=== PATIENT | female | born 1940 | race Caucasian/White ===

== ENCOUNTER 2018-03-10 16:55 | Inpatient (IN) | payer OTHER ==
[~2018-03-10] VITALS: Ht 165.1 cm; Wt 61.2 kg
--- NOTE | 2018-03-10 16:58 | NUR ---
Patient to ER bed 07 to gown for evaluation. Side rails up.
[2018-03-10 17:05] VITALS: BP_SYST 153
--- NOTE | 2018-03-10 17:08 | NUR ---
Kiley gray in EDM - 03/10/18 at 1722 by [email or web address] Pt brought by self,A&Ox4, pt presents to ER with sore throat , body aches and cough, afebrile, pt denies chest pain, respirations even and unlabored.
--- NOTE | 2018-03-10 17:10 | NUR ---
Dr Quiroz at bedside examining patient
[2018-03-10] MEDS ORDERED: NACL 0.9% 1,000 ML IV ONE (17:13)
[2018-03-10] MEDS ORDERED: ALBUTEROL SULFATE 0.083% 2.5 MG/3 ML VIAL.NEB IH ONE (17:15)
[2018-03-10] MEDS ORDERED: IPRATROPIUM BROM 0.5 MG/2.5 ML VIAL.NEB (ATROVENT) IH ONE (17:15)
[2018-03-10] MEDS ORDERED: ALBUTEROL SULFATE 0.083% 2.5 MG/3 ML VIAL.NEB INH ONE (17:26)
[2018-03-10] MEDS ORDERED: IPRATROPIUM BROM 0.5 MG/2.5 ML VIAL.NEB (ATROVENT) INH ONE (17:26)
[2018-03-10 17:50] LABS: BASOPHILS # (AUTO) 0.1 K/uL (0.0-0.2); BASOPHILS % (AUTO) 1.1 % (0.0-2.0); EOSINOPHILS # (AUTO) 0.4 K/uL (0.0-0.4); EOSINOPHILS % (AUTO) 4.8 % (0.0-4.0); HEMATOCRIT 45.5 % (36-48); HEMOGLOBIN 15.1 g/dL (12.0-16.0); LYMPHOCYTES # (AUTO) 0.9 K/uL (1.0-5.5); LYMPHOCYTES % (AUTO) 11.7 % (20.5-51.5); MEAN CORPUSCULAR HEMOGLOBIN 30 pg (27-31); MEAN CORPUSCULAR HGB CONC 33 % (32-36); MEAN CORPUSCULAR VOLUME 91 fL (79.0-98.0); MONOCYTES # (AUTO) 0.6 K/uL (0.0-1.0); MONOCYTES % (AUTO) 7.3 % (1.7-9.3); NEUTROPHILS # (AUTO) 5.8 K/uL (1.8-7.7); NEUTROPHILS % (AUTO) 75.1 % (40.0-70.0); PLATELET COUNT (AUTO) 261 K/uL (130-430); RED CELL DISTRIBUTION WIDTH 13.4 % (9.0-15.0); WHITE BLOOD COUNT (AUTO) 7.8 K/uL (4.8-10.8)
--- NOTE | 2018-03-10 18:00 | NUR ---
IV Fluids were administered, pt tolerated well. No adverse reaction, will continue to monitor.
[2018-03-10 18:06] LABS: PROTHROMBIN TIME 9.8 SECS (9.5-12.5)
[2018-03-10] MEDS ORDERED: AFAT40TA PO (18:12)
[2018-03-10] MEDS ORDERED: VERA180C8 PO (18:12)
[2018-03-10] MEDS ORDERED: ALBUTEROL SULFATE 0.083% 2.5 MG/3 ML VIAL.NEB INH SCH (18:15)
--- NOTE | 2018-03-10 18:36 | NUR ---
Patient will be admitted to care of Dr. Conde. Admitted to Med Surg unit. Will go to room 102 A. Belongings list completed. Summary report printed. Report will be given at bedside.
--- NOTE | 2018-03-10 18:40 | NUR ---
Admission Note Received patient from ER with diagnosis of lung cancer shortness of breath. Initial Plan of Care discussed-patient verbalized understanding. Family at bedside. Oriented to room, call light, pain management and safety.
[2018-03-10 18:51] VITALS: BP_SYST 158
[2018-03-10 18:54] LABS: ANION GAP 9 (5-15); CALCIUM 8.3 mg/dL (8.4-11.0); CHLORIDE 102 mmol/L (98-107); CREATININE 0.89 mg/dL (0.55-1.30); GLUCOSE 98 mg/dL (70-99); POTASSIUM 3.6 mmol/L (3.5-5.1); SODIUM SERUM 136 mmol/L (136-145); UREA NITROGEN, BLOOD 20 mg/dL (8-21)
[2018-03-10 18:58] LABS: ALANINE AMINOTRANSFERASE 11 U/L (12-78); ALBUMIN 2.6 g/dL (3.4-4.8); ASPARTATE AMINOTRANSFERASE 18 U/L (10-37); LIPASE 694 U/L (73-393); TOTAL BILIRUBIN 0.4 mg/dL (0.0-1.0)
--- NOTE | 2018-03-10 19:05 | NUR ---
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
--- NOTE | 2018-03-10 19:30 | NUR ---
INITIAL NOTES RECEIVED HANDOFF REPORT FROM OFFGOING NURSE AT THE BEDSIDE. PATIENT IS AWAKE AND ALERT, RESTING COMFORTABLY IN BED. NO SOB, NO ACUTE DISTRESS, NO COMPLAINTS OF PAIN. IV SITE INTACT, DRESSING CLEAN AND DRY, SALINE LOCKED. BED IS LOCKED, IN THE LOWEST POSITION, 2X SIDE RAILS UP, BED ALARM ON. CALL LIGHT WITHIN REACH. ENCOURAGED PATIENT TO CALL FOR ASSISTANCE. WILL CONTINUE WITH PLAN OF CARE.
--- NOTE | 2018-03-10 20:01 | NUR ---
DR WHITMAN CALLED. INFORMED DR WHITMAN THAT THE PATIENT IS HUNGRY, BUT DOES NOT YET HAVE A DIET ORDER. DR GIFFORD ORDERED FOR A REGULAR DIET. ORDERS NOTED AND CARRIED OUT. PROVIDED PATIENT WITH A WHEAT TURKEY SANDWICH. PATIENT ALSO AMBULATED TO RESTROOM AND BACK WITH ASSISTANCE FROM THE PATIENT'S DAUGHTER DAVID.
[2018-03-10 20:08] VITALS: BP_SYST 145
--- NOTE | 2018-03-10 21:38 | NUR ---
PATIENT IS SLEEPING, RESTING COMFORTABLY IN BED. NO SOB, NO ACUTE DISTRESS, NO SIGNS OF PAIN OR FACIAL GRIMACING. BREATHING EVEN AND UNLABORED WITH VISIBLE CHEST RISE AND FALL NOTED. CALL LIGHT WITHIN REACH.
--- NOTE | 2018-03-10 22:36 | NUR ---
PATIENT IS SLEEPING, RESTING IN BED. NO SOB, NO ACUTE DISTRESS, NO SIGNS OF PAIN OR FACIAL GRIMACING. BREATHING EVEN AND UNLABORED WITH VISIBLE CHEST RISE AND FALL NOTED. BED IS LOCKED, IN THE LOWEST POSITION, 2X SIDE RAILS UP, BED ALARM ON. CALL LIGHT WITHIN REACH.
[2018-03-10] MEDS ORDERED: ACETAMINOPHEN 325 MG TABLET PO PRN (23:45)
[2018-03-10] MEDS ORDERED: ALBUTEROL SULFATE 0.083% 2.5 MG/3 ML VIAL.NEB INH PRN (23:45)
[2018-03-10] MEDS ORDERED: D5/0.45 NS 1,000 ML IV SCH (23:48)
[2018-03-11] VITALS (7 sets, daily range): BP systolic 136–169
--- NOTE | 2018-03-11 00:53 | NUR ---
PATIENT ABLE TO AMBULATE SELF INDEPENDENTLY TO THE RESTROOM AND BACK TO BED WHILE PULLING THE IV POLE ALONGSIDE HER. GAIT IS STEADY. PATIENT IS NOW BACK TO BED, RESTING COMFORTABLY IN BED. NO SOB, NO ACUTE DISTRESS, NO COMPLAINTS OF PAIN. BED IS LOCKED, IN THE LOWEST POSITION, 2X SIDE RAILS UP, BED ALARM ON. CALL LIGHT WITHIN REACH. ENCOURAGED PATIENT TO CALL FOR ASSISTANCE.
--- NOTE | 2018-03-11 02:17 | NUR ---
PATIENT IS ASLEEP, RESTING COMFORTABLY IN BED. VISIBLE CHEST RISE AND FALL SEEN. NO SOB, NO ACUTE DISTRESS, NO SIGNS OF PAIN. CALL LIGHT WITHIN REACH.
--- NOTE | 2018-03-11 03:55 | NUR ---
PATIENT IS SLEEPING COMFORTABLY IN BED. NO SOB WITH VISIBLE CHEST RISE AND FALL NOTED. , NO ACUTE DISTRESS, NO SIGNS OF ACUTE PAIN OR FACIAL GRIMACING. Addendum: 03/11/18 at 0356 by Radha Garcia RN CONTINUATION OF NOTES IV SITE INTACT, DRESSING CLEAN AND DRY, CURRENTLY INFUSING IV FLUIDS AT THE ORDERED RATE, SEE EMAR FOR DETAILS. BED IS LOCKED, IN THE LOWEST POSITION, 2X SIDE RAILS UP, BED ALARM ON. CALL LIGHT IS WITHIN REACH.
--- NOTE | 2018-03-11 05:52 | NUR ---
PATIENT IS REQUESTING FOR DIAPERS FOR INCONTINENCE. INFORMED THE PATIENT THAT THIS IS A DIAPER-FREE FACILITY, AND EXPLAINED THE RISK FACTORS OF USING A DIAPER. ALSO PROVIDED INCONTINENCE BRIEF FOR THE PATIENT TO USE. PATIENT IS UPSET, STATED "HOW DO THEY EXPECT A LITTLE OLD LADY TO NOT HAVE DIAPERS DURING INCONTINENCE?" AND THAT SHE WILL ASK HER DAUGHTER TO BRING HER SOME DIAPERS.
[2018-03-11] MEDS: PANTOPRAZOLE SODIUM 40 MG TAB PO SCH (06:06)
--- NOTE | 2018-03-11 07:13 | NUR ---
Opening Note Patient resting in bed, awake and alert, head of bed elevated, breathing unlabored on 2.5L nasal cannula, no complaints of pain at this time, educated patient on use of call light for assistance, verbalized understanding, call light and bedside table within reach, will be back to check on patient
--- NOTE | 2018-03-11 07:26 | NUR ---
CLOSING NOTES ENDORSEMENT OF CARE GIVEN TO YAMIL AT THE BEDSIDE. PATIENT IS AWAKE AND ALERT, RESTING COMFORTABLY IN BED. FALL AND SAFETY PRECAUTIONS MAINTAINED. ALL NEEDS HAVE BEEN MET DURING THIS SHIFT. Addendum: 03/11/18 at 0730 by Radha Garcia RN CONTINUATION OF NOTES PERSONAL BELONGINGS LIST HAS BEEN VERIFIED WITH THE PATIENT, AND SIGNED BY THE PATIENT.
--- NOTE | 2018-03-11 07:48 | NUR ---
Diaper Education educated patient about no diaper policy and the potential for skin breakdown, verbalized understanding, stated that she will ask family to bring some
--- NOTE | 2018-03-11 07:52 | NUR ---
CONSULTATION PAGED REASON FOR CONSULTATION:SHORTENSS OF BREATH WAS CONSULT CALLED?Y PERSON WHO WAS NOTIFIED:[facility] CONSULTING PHYSICIAN:BRITT ALEJANDRO REPORTS ANALYST SPECIALTY:PULMONARY REPORTS ANALYST PHONE NUMBER:[phone] ORDERING PHYSICIAN:FEDE SANFORD
--- NOTE | 2018-03-11 09:50 | NUR ---
Spoke with Dr. Malagon informed him about patient's leg cramping on legs, orders for [place], informed patient and family that order was placed, verbalized understanding, will be back to check on patient
[2018-03-11] MEDS ORDERED: HYDROcodone/ACETAMIN 5-325 MG TAB (NORCO/ VICODIN) PO PRN (10:00)
--- NOTE | 2018-03-11 10:04 | NUR ---
Dr. Patterson rounds at this time, will follow up with MD orders
--- NOTE | 2018-03-11 10:45 | NUR ---
No Complaints of Pain at this time, patient educated about Bedrock and PRN status of medication, verbalized understanding, stated her pain subsided, family at bedside, no other needs at this time, breathing unlabored on 2.5 L nasal cannula, safety precautions remain in place, bedside table and call light within reach, will continue to monitor
--- NOTE | 2018-03-11 10:48 | NUR ---
Clarification of order Spoke to Dr. Malagon regarding palliative care ordered he said to disregard the order, instead hospice evaluation.
--- NOTE | 2018-03-11 11:07 | NUR ---
Patient had O2 of 87% on Room Air placed nasal cannula on patient, went back up to 93% on 2.5L, will continue to monitor
--- NOTE | 2018-03-11 13:32 | NUR ---
Patient Ambulates to Restroom steady gait, family at bedside, no complaints of pain at this time, educated patient and family on use of call light for assistance, verbalized understanding, call light and bedside table within reach, will continue to monitor
--- NOTE | 2018-03-11 15:15 | NUR ---
Patient Resting in Bed eyes closed, breathing unlabored on nasal cannula, she is positioned to her side, no signs of distress, symmetrical chest expansion, IV site saline locked, no other needs at this time, safety precautions remain in place, bed in lowest position with 2 side rails up, bedside table and call light within reach, will continue to monitor
--- NOTE | 2018-03-11 17:50 | NUR ---
Patient Requesting Sleeping Aid family at bedside, she has no complaints of pain, breathing unlabored, symmetrical chest expansion, informed patient will call
--- NOTE | 2018-03-11 18:34 | NUR ---
elvira Malagon for orders spoke with Rudy Dialed [phone]. [facility] [employer].
--- NOTE | 2018-03-11 18:40 | NUR ---
Spoke with Dr. Malagon about patient request for sleeping aid, ordered ambien, asked about hospice eval, informed him that order was placed but they have not seen patient yet
--- NOTE | 2018-03-11 18:50 | NUR ---
Closing Note Patient resting in bed, awake and alert, head of bed elevated, no complaints of pain, IV site saline locked, informed patient that received MD orders for PRN sleep aid, family at bedside, no other needs at this time, safety precautions remain in place, bed in lowest position with 2 side rails up, bedside table and call light within reach, will endorse to casino shift manager nurse
[2018-03-11] MEDS ORDERED: ZOLPIDEM TARTRATE 5 MG TABLET PO PRN (19:00)
--- NOTE | 2018-03-11 19:30 | NUR ---
INITIAL NOTES RECEIVED HANDOFF REPORT FROM OFFGOING NURSE AT THE BEDSIDE. FAMILY IS AT THE BEDSIDE. NO SOB, NO ACUTE DISTRESS, NO SIGNS OF PAIN OR FACIAL GRIMACING. IV SITE INTACT, DRESSING CLEAN AND DRY, SALINE LOCKED. BED IS LOCKED, IN THE LOWEST POSITION, 2X SIDE RAILS UP. PATIENT REFUSES BED ALARM AT THIS TIME. CALL LIGHT PLACED WITHIN REACH. ENCOURAGED PATIENT TO CALL FOR ASSISTANCE IF NEEDED. ALSO EXPLAINED PLAN OF CARE TO THE PATIENT. WILL CONTINUE WITH PLAN OF CARE. Addendum: 03/11/18 at 1959 by Radha Garcia RN CONTINUATION OF NOTES. PATIENT IS ALSO ON 3L NC.
--- NOTE | 2018-03-11 20:48 | NUR ---
PATIENT REQUESTING FOR SLEEPING MEDICATION. PROVIDED SOLO RAJANN PER MD ORDER, SEE EMAR FOR DETAILS. PATIENT ALSO HAD QUESTIONS REGARDING MORNING MEDICATION PROTONIX. PROVIDED EDUCATION REGARDING THIS MEDICATION, PATIENT VERBALIZED UNDERSTANDING.
--- NOTE | 2018-03-11 22:32 | NUR ---
PATIENT IS CURRENTLY SLEEPING, RESTING COMFORTABLY IN BED LYING ON HER RIGHT SIDE. NO SOB, NO ACUTE DISTRESS, NO SIGNS OF PAIN OR FACIAL GRIMACING. BREATHING IS EVEN AND UNLABORED WITH VISIBLE CHEST RISE AND FALL SEEN. BED IS LOCKED, IN THE LOWEST POSITION, 2X SIDE RAILS UP, BED ALARM ON. CALL LIGHT WITHIN REACH.
--- NOTE | 2018-03-11 23:44 | NUR ---
PATIENT AMBULATED SELF TO THE RESTROOM AND BACK TO BED. GAIT IS STEADY; HOWEVER PATIENT IS SHORT OF BREATH. PATIENT HAS BEEN SOB PRIOR TO AMBULATION WELL. RT NOTIFIED TO PROVIDE PATIENT WITH BREATHING TREATMENT. Addendum: 03/11/18 at 2345 by Radha Garcia RN CONTINUATION OF NOTES PATIENT IS ALSO ON 3L NC, O2 SATURATIONS WNL.
[2018-03-12] VITALS: BP_SYST 152
--- NOTE | 2018-03-12 01:57 | NUR ---
PATIENT IS ASLEEP. NO SOB WITH VISIBLE CHEST RISE AND FALL NOTED. NO ACUTE DISTRESS, NO SIGNS OF PAIN OR FACIAL GRIMACING. CALL LIGHT WITHIN REACH.
--- NOTE | 2018-03-12 03:26 | NUR ---
PATIENT REFUSE TO TURN ON THE BED SIDE ALARM
--- NOTE | 2018-03-12 03:37 | NUR ---
PATIENT AMBULATED SELF TO THE RESTROOM AND BACK INDEPENDENTLY. GAIT IS STEADY. PATIENT STATED THAT SHE HAS CHRONIC LEG PAIN 6/ THATS CRAMPING. PROVIDED NORCO PRN PER MD ORDER, SEE EMAR FOR DETAILS.
--- NOTE | 2018-03-12 05:42 | NUR ---
PATIENT IS SLEEPING, RESTING IN BED. NO SOB WITH VISIBLE CHEST RISE AND FALL NOTED. CALL LIGHT WITHIN REACH.
[2018-03-12] MEDS: PANTOPRAZOLE SODIUM 40 MG TAB PO SCH (06:12)
--- NOTE | 2018-03-12 07:47 | NUR ---
CLOSING NOTES PATIENT IS AWAKE AND ALERT, RESTING COMFORTABLY IN BED. NO SOB, NO ACUTE DISTRESS, NO COMPLAINTS OF PAIN. BED IS LOCKED, IN THE LOWEST POSITION, 2X SIDE RAILS UP. CALL LIGHT WITHIN REACH. FALL AND SAFETY PRECAUTIONS MAINTAINED. ALL NEEDS HAVE BEEN MET DURING THIS SHIFT. ENDORSEMENT OF CARE GIVEN TO JAMAL.
--- NOTE | 2018-03-12 07:50 | NUR ---
OPENING NOTE RECEIVED REPORT FROM DAY SHIFT NURSE. PT IS SLEEPING IN BED. NO SOB OR DISTRESS NOTED. PER DAY SHIFT NURSE, PT DENIES BED ALARM. SAFETY MEASURES IN PLACE, BED IS TO LOWEST POSITION, SIDE RAILS UPX3, CALL LIGHT WITHIN REACH. WILL CONTINUE TO MONITOR.
--- NOTE | 2018-03-12 07:54 | NUR ---
Nutrition Update Peyman Scale 17 noted. Pt admitted for Lung Cancer, SOB Diet: regular diet BMI: 22.5 kg/m2 RD to follow per nutrition care standards.
[2018-03-12] MEDS: IPRATROPIUM BROM 0.5 MG/2.5 ML VIAL.NEB (ATROVENT) INH PRN ×2 (08:25→14:17)
[2018-03-12 08:35] VITALS: BP_SYST 153
--- NOTE | 2018-03-12 09:35 | NUR ---
ROUNDS PT IS A/OX4. PT IS ON 3L NASAL CANNULA TOLERATING WELL, NO SOB NOTED. FAMILY IS AT BEDSIDE. ALL NEEDS MET AT THIS TIME. SAFETY MEASURES IN PLACE, BED IS TO LOWEST POSITION, PT REFUSES BED ALARM, SIDE RAILS UPX3, CALL LIGHT WITHIN REACH. WILL CONTINUE TO MONITOR
--- NOTE | 2018-03-12 09:41 | NUR ---
MD ROUNDS DR PIÑA IS AT BEDSIDE.
--- NOTE | 2018-03-12 10:01 | NUR ---
Faxed hospice evaluation order to [facility] [phone]. Fax confirmation in binder.
--- NOTE | 2018-03-12 11:45 | NUR ---
ROUNDS PT IS IN BED WITH FAMILY AT BEDSIDE. PT IS ON 3L NASAL CANNULA TOLERATING WELL. NO SOB NOTED. ALL NEEDS MET AT THIS TIME. PT DOES NOT WANT BED ALARM ON. SAFETY MEASURES IN PLACE, BED TO LOWEST POSITION, SIDE RAILS UPX2, CALL LIGHT WITHIN REACH. WILL CONTINUE TO MONITOR.
[2018-03-12 12:40] VITALS: BP_SYST 142
--- NOTE | 2018-03-12 13:59 | NUR ---
Dietitian Recommendations *Recommend continuing regular diet per MD orders. Please see Nutritional Assessment for details. [place], AKI
--- NOTE | 2018-03-12 14:15 | NUR ---
ROUNDS PT IS REQUESTING A BREATHING TREATMENT. RT WAS NOTIFIED. NO SOB NOTED. VITAS PERSONNEL AT BEDSIDE AND FAMLY MEMBER. SAFETY MEASURES IN PLACE, BED TO LOWEST POSITION, SIDE RAILS UPX2, CALL LIGHT WITHIN REACH. WILL CONTINUE TO MONITOR.
--- NOTE | 2018-03-12 15:22 | NUR ---
Bead Wire Taper DCP faxed pt's discharge home with hospice order to [facility]. DCP received fax confirmation.
[2018-03-12 15:23] VITALS: BP_SYST 130
--- NOTE | 2018-03-12 15:53 | NUR ---
ROUNDS PT IS IN BED SITTING UP. PT HAS NASAL CANNULA AT 3L TOLERATING WELL. FAMILY AT BEDSIDE. NO SOB NOTED. PT DENIES ANY PAIN. SAFETY MEASURES IN PLACE, BED TO LOWEST POSITION, SIDE RAILS UPX2, CALL LIGHT WITHIN REACH. WILL CONTINUE TO MONITOR.
[2018-03-12 17:23] VITALS: BP_SYST 154
--- NOTE | 2018-03-12 17:55 | NUR ---
D/C Patient Patient given D/C instructions. Exit Care provided. Patient verbalized understanding. MD discussed with patient the results and treatment provided. Ambulatory with steady gait for discharge to home. Patient in stable condition, ID band removed. IV catheter removed, intact and dressing applied, no active bleeding. Pt has nasal cannula to 3L. All belongings sent with patient.
== END 2018-03-12 17:55 | disposition hospice, home (50) | DRG 189 ==
LOC: SED 16:55 → SMU 18:14
PROVIDERS: ADMIT Internal Medicine Hospice and Palliative Medicine; ATTEND Internal Medicine Hospice and Palliative Medicine
DX: J96.01 Acute respiratory failure with hypoxia (principal); C34.90 Malignant neoplasm of unspecified part of unspecified bronchus or lung; J44.1 Chronic obstructive pulmonary disease with (acute) exacerbation; Z66 Do not resuscitate; Z51.5 Encounter for palliative care; I10 Essential (primary) hypertension; Z85.118 Personal history of other malignant neoplasm of bronchus and lung; Z79.899 Other long term (current) drug therapy; Z90.710 Acquired absence of both cervix and uterus
CPT/HCPCS: 36415; 71045; 80053; 82550-TC; 83690-TC; 84484; 85025; 85610-TC; 85730-TC; 93005; 94640; 94760; 96360; 99285; J7613